=== PATIENT | female | born 1995 | race Caucasian/White ===

== ENCOUNTER → 2021-02-27 12:04 | Outpatient (CLI) | payer OTHER, SELFPAY ==
[2021-02-27 12:55] LABS: Add Manual Diff / Slide Review NO; Basophils Absolute Auto 0 /uL (0-100); Basophils Percent Auto 0.2 % (0-2); Eosinophils Absolute Auto 100 /uL (0-450); Eosinophils Percent Auto 0.7 % (2-4); Hematocrit 38.6 % (36-46); Hemoglobin 13.8 g/dL (12.0-16.0); Lymphocytes Absolute Auto 1500 /uL (1100-4500); Mean Corpuscular HGB Conc 35.7 % (30-36); Mean Corpuscular Hemoglobin 31.6 PG (26-34); Mean Corpuscular Volume 88.7 fL (80-100); Monocytes Absolute Auto 800 /uL (0-900); Monocytes Percent Auto 9.6 % (3-14); Neutrophils Absolute Auto 6000 /uL (1500-7000); Neutrophils Percent Auto 71.5 % (50-75); Platelet Count 225 X10^3/uL (150-400); Red Blood Cell Count 4.35 X10^6/uL (4.0-5.2); Red Cell Distribution Width 12.1 % (11.6-14.8); White Blood Cell Count 8.3 X10^3/uL (4.5-11.0)
[2021-02-27 14:08] LABS: Appearance Urine UA SL CLOUDY; Bilirubin Urine UA NEGATIVE (NEGATIVE); Color Urine UA YELLOW; Glucose Urine UA NEGATIVE (Negative); Ketones Urine UA TRACE (NEGATIVE); Leukocyte Esterase Urine UA 1+ (NEGATIVE); Nitrite Urine UA NEGATIVE (Negative); Occult Blood Urine UA 1+ (Negative); Protein Urine UA TRACE (Negative); Specific Gravity Urine UA >=1.030 (1.000-1.035); Urobilinogen Urine UA 0.2 E.U./dL (0.2)
[2021-02-27 14:17] LABS: RBC Urine 1-5/HPF (0-5/HPF); Squamous Epithelial Cell Urine 10-30 /HPF (0-5/HPF); WBC Urine 5-10/HPF (0-5/HPF)
[2021-02-27 14:18] LABS: Bacteria Urine None Seen; Mucus Urine 2+ (Negative)
[2021-02-27 15:57] LABS: HIV 1 & 2 Ab/Ag 4th Gen Combo NEGATIVE (NEGATIVE); Hep C Virus Ab w/Reflex Quant NEGATIVE s/c (NEGATIVE); Hepatitis B Surface Antigen NEGATIVE s/c (NEGATIVE); Rubella Antibody IgG 35.7 IU/mL (>15)
[2021-02-28 08:14] LABS: RPR Screen Non Reactive (Non Reactive)
[2021-02-28 11:54] LABS: Varicella IgG Antibody 402 index (Immune >165)
== END ==
PROVIDERS: Referring Provider Family Medicine; Visit Provider Family Medicine
DX: Z34.01 Encounter for supervision of normal first pregnancy, first trimester (principal)
CPT/HCPCS: 36415; 80055; 81003; 81015; 86787; 86803; 86850; 86900; 86901; 87086; 87389

== ENCOUNTER → 2021-03-27 12:31 | Outpatient (CLI) | payer OTHER, SELFPAY | PROVIDERS: Referring Provider Family Medicine; Visit Provider Family Medicine | DX: Z34.90 Encounter for supervision of normal pregnancy, unspecified, unspecified trimester (principal) | CPT/HCPCS: 87086 ==

== ENCOUNTER → 2021-05-10 09:00 | Outpatient (CLI) | payer OTHER, SELFPAY ==
--- NOTE | 2021-05-10 09:02 | DI.US.S_ITS ---
PROCEDURE: US OB <= 14 WEEKS FETUS COMPARISON: None. INDICATIONS: ANATOMY FINDINGS: IMPRESSION: Dictated by: Phil Eaton M.D. on 05/10/2021 at 11:39 Approved by: Phil Eaton M.D. on 05/10/2021 at 11:39
--- NOTE | 2021-05-10 09:20 | DI.US.S_ITS ---
PATIENT NAME: DEIRDRE CH : 1995 EXAM DATE: 05/10/2021 9:20 ORD. DRSadiq: REJI SEVERINO M.D. CC: MODALITY: US PATIENT TYPE: Out CONTRAST MEDIA: STATION ID: [id number] FLUORO TIME: CORRECTION Corrected on: 05/12/2021; PROCEDURE: US OB >= 14 WEEKS FETUS INDICATIONS: ANATOMY OUTSIDE/PRIOR DATING DATA: Last menstrual period (LMP): Unknown. LMP-based estimated date of delivery (SUPA): Not applicable. First dating scan (date and location): May 10, 2021. Estimated date of delivery (SUPA) from first dating scan: September 17, 2021. TECHNIQUE: Real-time scanning was performed of the fetus, with image documentation and biometric measurements. Endovaginal scanning: Not performed COMPARISON: None. FINDINGS: General: A single living intrauterine gestation is present. Presentation: Breech. Placenta: Placental position is posterio , without previa. Amniotic fluid index: 14.2 cm, normal range is 5-24 cm. Single deepest vertical pocket is 4.4 cm. heart rate: 143 beats per minute. Maternal cervical canal: 3.6 cm long. Normal lower limit is 2.5 cm. biometrics: Continued Report - Page 2 of 2 PATIENT NAME: DEIRDRE CH : 1995 EXAM DATE: 05/10/2021 9:20 ORD. DRSadiq: REJI SEVERINO M.D. CC: MODALITY: US PATIENT TYPE: Out CONTRAST MEDIA: STATION ID: [id number] FLUORO TIME: Biparietal diameter: 5.0 cm, correlating with 21 weeks and 1 day Head circumference: 19.0 cm, correlating with 21 weeks and 2 days Abdominal circumference: 16.7 cm, correlating with 21 weeks and 5 days Femur length: 3.6 cm, correlating with 21 weeks and 3 days Clinically estimated gestational age: Not calculated Composite gestational age from present scan: 21 weeks and 3 days Estimated weight and percentile: 435 g. Percentile not calculated Anatomic survey: Neuro: Ventricles are non-dilated at less than 10 mm. Cisterna magna is normal at 3-11 mm. Cerebellum is normal in size and morphology. Nuchal skin fold: Normal at less than 6 mm between 14-21 weeks gestational age. Face: Nose and lips, facial profile are normal. Spine: No evidence for spina bifida. Heart: 4-chambered heart is present, with normal ventricular outflow tracts. Diaphragm: Diaphragm is intact. Stomach: Left-sided stomach is present. Kidneys: No hydronephrosis. Normal is less than 5 mm in 2nd trimester, less than 7 mm in 3rd trimester. Cord: 3-vessel cord has orthotopic insertion. Bladder: Normal in size. Extremities: All 4 extremities identified. IMPRESSION: 1. Single living intrauterine gestation with estimated sonographic gestational age of approximately 21 weeks and 3 days which correlates with an estimated dated delivery of approximately September 17, 2021. 2. Unremarkable second-trimester anatomic screening survey. We strive to produce accurate, complete, and clear reports of imaging services. To assist us in improving patient care, this report was composed using standard report templates and voice recognition software. Therefore, it may contain abnormal punctuation, insertions and/or omissions. Occasional wrong-word or sound-alike substitutions may occur. Though we review the report and make efforts to correct it, we do recommend that the report be read carefully in proper context to recognize any text inaccuracies. Dictated by: Phil Eaton M.D. on 05/12/2021 at 12:25 Approved by: Phil Eaton M.D. on 05/12/2021 at 12:29
== END ==
PROVIDERS: Referring Provider Family Medicine; Visit Provider Family Medicine
DX: Z36.89 Encounter for other specified antenatal screening (principal); Z3A.21 21 weeks gestation of pregnancy
CPT/HCPCS: 76801; 76811

== ENCOUNTER → 2021-07-04 13:05 | Outpatient (CLI) | payer OTHER, SELFPAY ==
[2021-07-04 17:59] LABS: GTT (PREG) 1 Hour PP 50gm Dose 115 mg/dL (76-139)
[2021-07-04 18:01] LABS: Hemoglobin A1C% w Est Avg Glu 4.8 % (4.0-6.0)
[2021-07-05 10:51] LABS: Add Manual Diff / Slide Review NO; Basophils Absolute Auto 100 /uL (0-100); Basophils Percent Auto 0.7 % (0-2); Eosinophils Absolute Auto 100 /uL (0-450); Eosinophils Percent Auto 1.3 % (2-4); Hematocrit 34.7 % (36-46); Hemoglobin 11.9 g/dL (12.0-16.0); Lymphocytes Absolute Auto 1700 /uL (1100-4500); Lymphocytes Percent Auto 16.1 % (25-40); Mean Corpuscular HGB Conc 34.3 % (30-36); Mean Corpuscular Hemoglobin 29.6 PG (26-34); Mean Corpuscular Volume 86.5 fL (80-100); Monocytes Absolute Auto 1100 /uL (0-900); Monocytes Percent Auto 10.4 % (3-14); Neutrophils Absolute Auto 7500 /uL (1500-7000); Neutrophils Percent Auto 71.5 % (50-75); Platelet Count 187 X10^3/uL (150-400); Red Blood Cell Count 4.01 X10^6/uL (4.0-5.2); Red Cell Distribution Width 11.8 % (11.6-14.8); White Blood Cell Count 10.5 X10^3/uL (4.5-11.0)
== END ==
PROVIDERS: PCP Family Medicine; Referring Provider Family Medicine; Visit Provider Family Medicine
DX: Z34.92 Encounter for supervision of normal pregnancy, unspecified, second trimester (principal); R73.03 Prediabetes
CPT/HCPCS: 36415; 82950; 83036; 85025

== ENCOUNTER 2021-08-19 12:00 | Inpatient (IN) | payer OTHER, SELFPAY ==
--- NOTE | 2021-08-19 12:48 | PM.OBHP.IH.1 ---
OB HPI Date/Time Date of admission: 08/19/21 Date Patient Seen: 08/19/21 Time Patient Seen: 12:48 History of Present Condition Chief complaint: Eval of Labor SUPA Calculator Estimated Delivery Date Method Current WG Current Estimate 09/25/21 LMP (Uncertain) 34w 5d Estimated Gestational Age (weeks): 34+5 : 1 Para: 0 care: good care, initiated at week # (10), number of visits (9) and pounds weight gain (49) Dating criteria OB: LMP confirmed by 1st trimester US Ultrasounds: normal 1st trimester US and normal mid trimester US Obstetrical complications: none Medical complications OB: none Indications Other reason(s) for admission: Patient is a 25-year-old 1 para 0 at 34-,5/7 weeks gestation who presented with gross rupture of membranes at 11:00 a.m.. She has not felt any contractions. No recent illness. Preadmission Labs Last OB Lab Results: Blood Type A Positive 02/27/21 12:23 Antibody Screen Negative 02/27/21 12:23 Hematocrit 33.2 % (36-46) L 08/19/21 13:14 Hemoglobin 10.9 g/dL (12.0-16.0) L 08/19/21 13:14 Hepatitis B Surface Antigen Negative s/c (NEGATIVE) 02/27/21 12:23 Hepatitis C Antibody Negative s/c (NEGATIVE) 02/27/21 12:23 Rubella Antibody 35.7 IU/mL (>15) 02/27/21 12:23 Varicella-Zoster IgG Antibody 402 index (Immune >165) 02/27/21 12:23 Glucose 1 Hour 115 mg/dL (76-139) 07/04/21 15:18 Group B Streptococcus (PCR) Pending 08/19/21 13:06 -: Urine: positive (G. vaginalis) External Labs -: Urine: positive (G. vaginalis) Evaluation Evaluation Baseline heart rate: 125 Variability: Moderate (11-25) monitor accelerations: Present Monitor Decelerations: Absent Uterine Contraction Intensity: Mild Status: Category l Dilation (cm): 2 Effacement (%): 100 station: -2 Position of cervix: anterior Consistency: soft Comments: Vertex presentation by ultrasound [facility] Medical History (Updated 02/22/21 @ 10:18 by Kathy Maloney RN) Nexplanon removal (~12/19/20) Surgical History (Updated 02/22/21 @ 10:18 by Kathy Maloney RN) [place] teeth extracted (~2013) Family History (Updated 02/22/21 @ 10:24 by Kathy Maloney RN) Mother Hypothyroid Anxiety Depression Father No problems noted. Grandmother Breast cancer Grandfather Family estrangement Family history unknown Grandmother No problems noted. Grandfather Diabetes mellitus Brother Anxiety Depression Social History marital status: unmarried,living together number of children: 0 household members: significant other lives independently: Yes caregiver/support person: No housing: house pets and animals: Yes (4 dogs: safe, calm dogs, used to kids. 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 Cigs & vaping. ) Tobacco: How many years used: 2 quit status: has quit before (With diagnosis. ) second hand exposure: No alcohol intake: former (Pre-: A glass of wine most nights. 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 ) well-balanced diet: about half the time (Struggling with food aversions. ) daily servings fruits/ve or more times/day caffeine: No Type(s) of exercise: walking (Dog walking, 2 miles a few times/week.) frequency: 3-4 times per week duration: 15-30 minutes/day Meds Home Medications and Allergies Home Medications Medication Instructions Recorded Confirmed Type prenat.vits,south,[id number] 1 tab PO DAILY 02/22/21 07/31/21 History double electric breast pump and #1 ea 07/31/21 07/31/21 Rx supplies Allergies Allergy/AdvReac Type Severity Reaction Status Date / Time No Known Drug Allergies Allergy Verified 07/31/21 15:31 OB Exam Narrative Exam Narrative: Generally: Comfortable, no acute distress Lungs: CTA bilat CV: RRR FH: 35 cm Perineum: Wet with clear fluid Ext: No edema, 1+ DTRs Objective Labs Result Diagrams: 08/19/21 13:14 Assessment and Plan Assessment and Plan Assessment and Plan narrative: Assessment: 25-year-old 1 para 0 at 34-,5/7 weeks gestation by last menstrual period, confirmed by first-trimester ultrasound premature rupture of membranes with clear amniotic fluid Vertex presentation Uncomplicated COVID negative Plan: Transfer to [facility] physician, Celia Vences MD Penicillin, 5,000,000 units Betamethasone 12 mg IM x1 Group B strep swab obtained Patient to go by ground transportation Time Spent with Patient Total time spent with greater than 50% in coordination of care (as documented) at patient's floor/unit and/or counseling patient:: Greater than 35 minutes
[2021-08-19 13:17] LABS: Add Manual Diff / Slide Review NO; Basophils Absolute Auto 0 /uL (0-100); Basophils Percent Auto 0.2 % (0-2); Eosinophils Absolute Auto 100 /uL (0-450); Eosinophils Percent Auto 0.7 % (2-4); Hematocrit 33.2 % (36-46); Hemoglobin 10.9 g/dL (12.0-16.0); Lymphocytes Absolute Auto 1600 /uL (1100-4500); Mean Corpuscular HGB Conc 32.8 % (30-36); Mean Corpuscular Hemoglobin 26.4 PG (26-34); Mean Corpuscular Volume 80.3 fL (80-100); Monocytes Absolute Auto 1400 /uL (0-900); Monocytes Percent Auto 9.4 % (3-14); Neutrophils Absolute Auto 11500 /uL (1500-7000); Neutrophils Percent Auto 78.7 % (50-75); Platelet Count 221 X10^3/uL (150-400); Red Blood Cell Count 4.14 X10^6/uL (4.0-5.2); Red Cell Distribution Width 13.2 % (11.6-14.8); White Blood Cell Count 14.6 X10^3/uL (4.5-11.0)
[2021-08-19] MEDS: LACTATED RINGERS 1,000 ML 100 ML IV (13:19)
[2021-08-19] MEDS: BETAMETHASONE 30 MG/5 ML MDV 12 MG IM (13:19)
[2021-08-19 13:43] LABS: COVID19 -Nasal RAPID Negative (Negative)
[2021-08-19] MEDS: PENICILLIN G POTASSIUM 5,000,000 UNIT in DEXTROSE 5% IN WATER 250 ML 250 UNIT IV (13:50)
[2021-08-19 14:35] LABS: Strep Grp B PCR NEG for Grp B Strep
== END 2021-08-19 14:17 | disposition home or self-care (01) | DRG 831 ==
PROVIDERS: Admitting Provider Obstetrics & Gynecology; PCP Family Medicine; Referring Provider Obstetrics & Gynecology; Visit Provider Obstetrics & Gynecology
DX: O42.913 Preterm premature rupture of membranes, unspecified as to length of time between rupture and onset of labor, third trimester (principal); O75.3 Other infection during labor; Z3A.34 34 weeks gestation of pregnancy
CPT/HCPCS: 59025; 59050; 76815; 84112; 85025; 86850; 86900; 86901; 87081; 87635; 87653; 96360; 96372; 99234; C9803; G0378; G0379; J0702; J2540